=== PATIENT | female | born 1980 | race Caucasian/White ===

== ENCOUNTER 2017-03-12 14:37 | Emergency (ER) | payer OTHER ==
[2017-03-12 14:56] VITALS: BP 110/65; PULSE 78; RESP 16; TEMP 97.8; O2SAT 99
[2017-03-12] MEDS ORDERED: THYROID MED (15:35)
[2017-03-12] MEDS ORDERED: SODIUM CHLOR 0.9% 1000 ML INJ 1,000 ML IV ONE (15:49)
--- NOTE | 2017-03-12 16:01 | PD ---
HPI Chief Complaint: Related Problem Time Seen by Provider: 15:45 Travel History International Travel<30 days: No Contact w/Intl Traveler<30days: No Traveled to known affect area: No History of Present Illness HPI The patient is a 36-year-old female from [place] who is , last menstrual cycle January 21, 2017, who is currently 7 weeks by her report. The patient states she had an ultrasound, transvaginal, at 4 weeks of which revealed an IUP. The patient states she developed lower abdominal cramping yesterday with a brown discharge with wiping. She denies any actual bleeding, dysuria, frequency, urgency, or hematuria. The patient states she is Rh+. The patient denies any associated nausea, vomiting, diarrhea , constipation, or change in bowel habits. The patient is currently visiting her family, will be in the area for another one and a half months. Symptoms are mild to moderate, possibly exacerbated by underlying , and there are no current alleviating factors. PFSH Past Medical History Thyroid Disease: Yes Tetanus Vaccination: > 5 Years Influenza Vaccination: No ?: : 3 Para: 1 Miscarriage: 0 : 1 Past Surgical History Section: Yes Social History Alcohol Use: No Tobacco Use: No Substance Use: No Allergies-Medications (Allergen,Severity, Reaction): Coded Allergies: No Known Allergies (Verified Allergy, Unknown, 03/12/17) Reported Meds & Prescriptions Reported Meds & Active Scripts Active Reported [Thyroid Med] Review of Systems Except as stated in HPI: all other systems reviewed are Neg General / Constitutional: No: Fever Cardiovascular: No: Chest Pain or Discomfort Respiratory: No: Shortness of Breath Gastrointestinal: No: Nausea, Vomiting, Diarrhea, Abdominal Pain, Constipation Genitourinary: Positive: Pelvic Pain (cramping), Discharge (brown vaginal discharge with wiping), No: Urgency, Frequency, Dysuria, Vaginal Bleeding Physical Exam Narrative GENERAL: Awake, alert, pleasant 36-year-old female who appears her stated age and is in no acute respiratory distress. SKIN: Focused skin assessment warm/dry. HEAD: Atraumatic. Normocephalic. EYES: Pupils equal and round. No scleral icterus. No injection or drainage. ENT: No nasal bleeding or discharge. Mucous membranes pink and moist. NECK: Trachea midline. No JVD. GASTROINTESTINAL: Abdomen soft, non-tender, nondistended. No rebound tenderness , guarding, rigidity. Back: No CVA tenderness. Pelvic: The exam was performed in the presence of a female nurse. External examination reveals no rashes or lesions. Speculum examination reveals a closed cervix with a cervical mucous plug at the os. No visible blood in the vaginal vault. Normal exam. MUSCULOSKELETAL: No obvious deformities. No clubbing. No cyanosis. No edema. NEUROLOGICAL: Awake and alert. No obvious cranial nerve deficits. Motor grossly within normal limits. Normal speech. PSYCHIATRIC: Appropriate mood and affect; insight and judgment normal. Data Data Last Documented VS Vital Signs Date Time Temp Pulse Resp B/P (MAP) Pulse Ox O2 Delivery O2 Flow Rate FiO2 03/12/17 14:56 97.8 78 16 110/65 (80) 99 Orders Orders Ed Urine Pregnancytest Poc (03/12/17 15:46) Complete Rh (03/12/17 15:49) Wet Prep Profile (03/12/17 15:49) Urinalysis - C+S If Indicated (03/12/17 15:49) Iv Access Insert/Monitor (03/12/17 15:49) Sodium Chlor 0.9% 1000 Ml Inj (Ns 1000 M (03/12/17 15:49) Ed Poc Ultrasound (03/12/17 15:49) Labs Laboratory Tests Test 03/12/17 15:55 03/12/17 16:30 Urine Color YELLOW Urine Turbidity CLEAR Urine pH 5.5 Urine Specific [place] 1.016 Urine Protein NEG mg/dL Urine Glucose (UA) NEG mg/dL Urine Ketones 15 mg/dL Urine Occult Blood TRACE Urine Nitrite NEG Urine Bilirubin NEG Urine Leukocyte Esterase NEG Urine RBC 0-3 /hpf Urine WBC 0-2 /hpf Urine Squamous Epithelial Cells 0-5 /hpf Microscopic Urinalysis Comment CULT NOT INDICATED Clue Cells (Wet Prep) NONE SEEN Vaginal Trichomonas (Wet Prep) NONE SEEN Vaginal Yeast (Wet Prep) NONE SEEN MDM Medical Decision Making Medical Screen Exam Complete: Yes Emergency Medical Condition: Yes Medical Record Reviewed: Yes Interpretation(s) Laboratory Tests Test 03/12/17 15:55 03/12/17 16:30 Urine Color YELLOW Urine Turbidity CLEAR Urine pH 5.5 Urine Specific [place] 1.016 Urine Protein NEG mg/dL Urine Glucose (UA) NEG mg/dL Urine Ketones 15 mg/dL Urine Occult Blood TRACE Urine Nitrite NEG Urine Bilirubin NEG Urine Leukocyte Esterase NEG Urine RBC 0-3 /hpf Urine WBC 0-2 /hpf Urine Squamous Epithelial Cells 0-5 /hpf Microscopic Urinalysis Comment CULT NOT INDICATED Clue Cells (Wet Prep) NONE SEEN Vaginal Trichomonas (Wet Prep) NONE SEEN Vaginal Yeast (Wet Prep) NONE SEEN Vital Signs Date Time Temp Pulse Resp B/P (MAP) Pulse Ox O2 Delivery O2 Flow Rate FiO2 03/12/17 14:56 97.8 78 16 110/65 (80) 99 Differential Diagnosis Differential diagnosis includes threatened AB, ectopic , incomplete AB , vaginitis, cervicitis, PID, UTI. Narrative Course A bedside ultrasound was performed which reveals an IUP with positive heart tones, the patient was shown the ultrasound as it was performed real- time. UA was sent to lab. A pelvic exam was completed in the presence of a female nurse and wet prep was sent to lab. The patient was administered 1 L of IV fluids. Rh is a positive, therefore, no indication for RhoGAM. Wet prep is negative. I'll exam is unremarkable. Patient stable for outpatient follow-up. Return if symptoms worsen or progress. Procedures Procedure Narrative A bedside ultrasound was performed using a curvilinear probe which reveals an IUP with positive heart tones. The patient was shown the ultrasound was performed real-time. There is no obvious complications and the patient tolerated the procedure without difficulty. Diagnosis Primary Impression: Qualified Codes: Z34.90 - Encounter for supervision of normal , unspecified, unspecified trimester Patient Instructions: General Instructions Additional Instructions: Please provide the patient a copy of her labs at discharge. Follow-up with your primary physician. Return if symptoms worsen or progress. Med/Other Pt SpecificInfo: No Change to Meds Disposition: 01 DISCHARGE HOME Condition: Stable Erwin Godinez MD Mar 12, 2017 16:01
[2017-03-12 16:08] LABS: BLOOD, URINE TRACE (NEG); GLUCOSE,URINE NEG (NEG); KETONE, URINE 15 mg/dL (NEG); NITRITE,URINE NEG (NEG); PH, URINE 5.5 (5.0-8.5)
[2017-03-12 16:27] LABS: URINE COLOR YELLOW (YELLW/STRAW)
[2017-03-12 16:28] LABS: COMMENT (UR) CULT NOT INDICATED; CULTURE IF INDICATED CULT NOT INDICATED; RBC, URINE 0-3 /hpf (0-3); SQUAMOUS EPITHELIAL CELL URINE 0-5 /hpf (0-5); WBC, URINE 0-2 /hpf (0-5)
[2017-03-12 17:59] VITALS: BP 96/69; PULSE 76; RESP 16; O2SAT 96
== END 2017-03-12 18:17 | disposition home or self-care (01) ==
LOC: PHED 14:37
DX: Z34.81 Encounter for supervision of other normal pregnancy, first trimester (principal)
CPT/HCPCS: 81001; 84703; 86901; 87210; 96360; 99285; J7030